=== PATIENT | male | born 1995 | race Caucasian/White ===

== ENCOUNTER 2017-03-22 21:24 | Inpatient (IN) | payer OTHER, MEDICAID ==
[2017-03-22] MEDS ORDERED: LORazepam INJ* 2 MG/ML 1 ML VIAL IV PUSH PRN (21:57)
--- NOTE | 2017-03-22 22:48 | RAD ---
INDICATION: Fever COMPARISON: June 22, 2016 TECHNIQUE: An AP supine portable view obtained at 2230 hours is submitted. FINDINGS: Bones/Soft Tissues: There are no acute bony findings. Cardiomediastinal: The cardiomediastinal silhouette is normal. Lungs: There are no infiltrates. Pleura: There are no pleural effusions. Other: None IMPRESSION: NO ACTIVE DISEASE
--- NOTE | 2017-03-22 23:52 | HP ---
HISTORY AND PHYSICAL: DATE OF ADMISSION: 03/22/17 PRIMARY CARE PROVIDER: Long Jimenez MD NEUROLOGIST: Dr. Urrutia. CHIEF COMPLAINT: Seizures. HISTORY OF PRESENT ILLNESS: Mr. Chaney is a 21-year-old male who has been diagnosed with the seizure disorder within the last one year, who presented to [facility] after having four seizures in the home. The patient was admitted initially to [facility] and sent to [facility], so Neurology could be involved. The patient is currently sedated or postictal and unable to provide any history. The entire history is obtained from history and physical obtained at [facility]. Per the H and P from [place], the patient had been using synthetic marijuana called spike as well as natural marijuana. The patient's father is unaware of if he was taking the synthetic marijuana recently. The patient had a seizure at approximately 3 a.m. and then had three more episodes at home. After each episode, the patient became more and more confused and lethargic. The patient' s father estimated each seizure to last approximately 10 minutes. During the last 2 seizure episodes, he bit his tongue and started bleeding. The patient reportedly did not lose any bowel or bladder control. The patient did not have his Lamictal on the morning of admission to [place] or transfer to [facility] though he did receive a dose at [facility]. While at [place], the patient had another 2 seizures in the emergency room and 2 more seizures on the telemetry floor. Because of this, the patient was transferred to [facility]. PAST MEDICAL HISTORY: Again according to H and P from [place]: 1. Asthma. 2. Anxiety. 3. Depression. 4. PTSD. 5. Seizure disorder. 6. History of cutting. 7. Polysubstance abuse (the patient has past history of abusing morphine, cocaine, and more recently marijuana and synthetic marijuana). PAST SURGICAL HISTORY: Unobtainable. FAMILY HISTORY: Unobtainable from the patient due to him currently being postictal and lethargic. SOCIAL HISTORY: According to H and P from [place] reveals the patient is currently living with his father. He has the reported polysubstance abuse as noted in the past medical history. He reportedly does not drink alcohol and does smoke cigarettes. He does not work and does not drive. REVIEW OF SYSTEMS: Unobtainable from the patient due to him being likely postictal and lethargic. PHYSICAL EXAMINATION GENERAL: The patient is a well-developed, young male, lying on his right side, in no acute distress. VITAL SIGNS: Blood pressure 114/62, pulse 105, respirations 22, temp 101, O2 sat 99% on room air. HEENT: Pupils are equal. They are round. They react to light. The patient does not open his eyelids on his own, but with lifting the eyelids, I am able to perform this exam. He does not appear to look around when I lift his eyelids. Oropharynx is noted to be relatively moist. There is no submandibular , cervical or supraclavicular adenopathy. Thyroid is not enlarged. No thyroid nodules are noted. PULMONARY: The patient does not give a good effort for this exam, but his breath sounds appear to be clear. CARDIAC: Normal S1, S2. Heart rate is slightly tachycardic, but regular. There is no lower extremity edema. ABDOMEN: Bowel sounds are present. Abdomen is soft, nondistended. He does not grimace to palpation of the abdomen. MUSCULOSKELETAL: There is no cyanosis or clubbing of the digits. Passive range of motion is noted to be intact. The patient does not actively move his extremities other than curling up further for sleep. NEUROLOGIC: Unable to be obtained due to the patient being lethargic and postictal. SKIN: Warm and dry. There are no clear rashes. There is evidence of prior cutting on the left upper arm. PSYCH: Unable to be obtained due to the patient being lethargic and postictal. DIAGNOSTIC STUDIES/LAB DATA: Labs from [place], WBC 12.1, hemoglobin 14.5, hematocrit 41.9, platelets 228. Sodium 141, potassium 3.8, chloride 109, CO2 23 , BUN 24, creatinine 1.1, glucose 124, calcium 9.1, albumin 4.7, bilirubin 0.4, AST 22, ALT 32, alk phos 61, CPK 498. [place]peated [place] 0502, Lamictal level is pending. Urinalysis revealed specific gravity of 1.015, positive for urine ketones, negative for nitrites, negative for leukocyte esterase. Urine drug screen is positive for cannabinoids. EKG reveals normal sinus rhythm without any acute ST-T wave abnormalities. ASSESSMENT AND PLAN: Mr. Chaney is a 21-year-old male who was diagnosed with seizure disorder within the last one year, had been on Lamictal 50 mg twice daily, who presented to [place] [facility] after having 4 seizures at home with no clear lucid period between the seizures. 1. Status epilepticus. The patient has had 8 seizures today in less than 24- hour period of time. The patient has not returned to baseline mental status between these seizures. Currently, the patient is likely lethargic related to being postictal as well as receiving 7 to 8 mg of IV Ativan at [facility]. The patient will continue on Keppra 1 g IV q.12 hours for now. Once he is awake and taking an oral medication, his Lamictal dose will be increased to 75 mg twice daily per Dr. Urrutia's recommendations. If the patient has further seizure activity, he would be loaded with fosphenytoin at 20 mg/kg IV. The patient will have Ativan 1 mg IV q.2 hours p.r.n. seizures lasting greater than 3 minutes. He will be monitored very closely in the intensive care unit and Neurology consultation will be requested for tomorrow morning. The patient is currently febrile. It is unclear if this preceded the seizure activity or subsequent to the seizure activity. Urinalysis at [place] was not concerning for infection. I will, however, go ahead and get the chest x-ray to rule out pneumonia. I will not start antibiotics at this time as there is no clear source of infection. 2. Mildly elevated CPK. The patient likely has very mild rhabdomyolysis related to seizure activity. The patient's seizures are tonic-clonic in nature. We will get a followup CPK level tomorrow morning. 3. Polysubstance abuse. The patient reportedly has been using both synthetic and natural marijuana recently. Perhaps this has contributed to the onset of his seizure activity today. Once awake and oriented, counseling will need to be provided to the patient. He would likely benefit from a social work consult. 4. DVT prophylaxis. According to the Adult Thrombosis Prophylaxis Risk Factor Assessment Guide, the patient has a total risk factor score of 0 making him low risk; however, as he is not up and ambulating at this time, he will be started on heparin 5000 units subcutaneous q.12 hours. 5. Code status is full. TIME SPENT: 65 minutes were spent admitting this patient of which greater than half was spent reviewing the records from [facility] and performing the physical exam. CC: Dr. Long Jimenez; Dr. Urrutia * [id number]/[facility] #: [id number] [facility]
[2017-03-23] MEDS: NS 0.9% 1000 ML* 1,000 ML IV SCH ×3 (04:28→17:47)
[2017-03-23 05:19] LABS: Hematocrit 37 % (42-52); Hemoglobin 12.4 g/dl (14.0-18.0); Mean Corpuscular HGB Conc 34 g/dl (31-36); Mean Corpuscular Hemoglobin 29 pg (27-31); Mean Corpuscular Volume 85 fL (80-94); Mean Platelet Volume 8 um3 (7.4-10.4); Red Blood Count 4.34 10^6/ul (4.0-5.4); Red Cell Distribution Width 14 % (10.5-15); White Blood Count 10.9 10^3/ul (3.5-10.8)
[2017-03-23 05:33] LABS: BUN/Creatinine Ratio 15.1 (8-20); Calcium 8.6 mg/dL (8.6-10.3); EGFR African American 131.9 (>60); EGFR Non-African American 102.6 (>60); Potassium 3.5 mmol/L (3.5-5.0)
[2017-03-23 08:21] LABS: Albumin 3.9 g/dL (3.2-5.2); Globulin 2.3 g/dL (2-4); Total Bilirubin 0.7 mg/dL (0.2-1.0); Total Protein 6.2 g/dL (6.4-8.9)
--- NOTE | 2017-03-23 09:44 | PN ---
Subjective Date of Service: 03/23/17 Interval History: This is a 21 yo male with known seizure disorder, followed by Dr Urrutia, and substance abuse disorder who was transferred from [facility] overnight with status epilepticus. Patient has been using marajuana as well as synthetic marajuana (Spice) and denies an association with substance use and seizure activity. He remembers little about yesterday but states that prior he was feeling well. He reports medication non-compliance, stating he frequently misses doses and he forgets to take it. Denies any additional complaints this am. Objective Active Medications: Heparin Sodium (Porcine) (Heparin Vial(*)) 5,000 units SUBCUT Q12HR KENDALL Levetiracetam 1,000 mg/ Sodium (Chloride) 110 mls @ 440 mls/hr IVPB Q12H [facility] Last Admin: 03/23/17 05:31 Dose: 440 mls/hr Sodium Chloride (Ns 0.9% 1000 Ml*) 1,000 mls @ 150 mls/hr IV PER RATE [facility] Last Admin: 03/23/17 04:28 Dose: 150 mls/hr Lamotrigine (Lamictal Tab(*)) 75 mg PO BID KENDALL Lorazepam (Ativan Inj*) 1 mg IV PUSH Q2H PRN PRN Reason: seizure >3 minutes Vital Signs: Temp Pulse Resp BP Pulse Ox 98.8 F 84 24 97/46 97 03/23/17 07:41 03/23/17 09:00 03/23/17 09:00 03/23/17 09:00 03/23/17 09:00 Appearance: Somewhat fatigued appearing and slow to answer questions, but alert Respiratory: Symmetrical Chest Expansion and Respiratory Effort, Clear to Auscultation Cardiovascular: NL Sounds; No Murmurs; No JVD, RRR Abdominal: NL Sounds; No Tenderness; No Distention Extremities: No Edema Skin: No Rash or Ulcers Neurological: Alert and Oriented x 3 Result Diagrams: 03/23/17 05:00 03/23/17 05:00 Microbiology and Other Data: Microbiology 03/23/17 03:00 Nasal Screen MRSA (PCR)(ALICE) - Final Nasal Mrsa Negative Assess/Plan/Problems-Billing Assessment: This is a 21 yo male with seizure d/o, polysubstance abuse, asthma, anxiety, depression, PTSD who was transferred overnight from [facility] with status epilepticus. - Patient Problems (1) Status epilepticus Comment: Resolved No further seizure activity since arrival Followed by Dr Urrutia for known sz d/o who is also consulting Lamictal dose increased to 75 mg bid per her recommendation Will stop IV Keppra at this time EEG pending Cont to monitor in ICU setting (2) Polysubstance abuse Comment: Utox pending Patient admits to recent marajuana and synthetic marajuana (Spice) use Limited insight as to how his substance abuse is playing a role in his seizure control (3) Asthma Comment: No associated exacerbation (4) Anxiety and depression Comment: Stable Working to confirm home medications (5) PTSD (post-traumatic stress disorder) (6) Full code status (7) DVT prophylaxis Comment: SQ heparin Status and Disposition: Inpatient. Pending EEG and neurology consult. Possible dc later today or tomorrow
[2017-03-23] MEDS: Heparin VIAL(*) 5000 UNITS/ML VIAL (FIVE THOUSAND) SUBCUT SCH ×2 (09:59→20:53)
[2017-03-23] MEDS: lamoTRIgine TAB(*) 25 MG PO SCH ×2 (10:00→20:54)
[2017-03-23 11:39] LABS: Urine Bilirubin Negative (Negative); Urine Glucose Negative (Negative); Urine Nitrite Negative (Negative)
[2017-03-23] MEDS: levETIRAcetam TAB* 500 MG PO SCH (20:54)
--- NOTE | 2017-03-23 20:55 | CONS ---
NEUROLOGY CONSULTATION: DATE OF CONSULT: 03/23/17 LOCATION: The patient is an inpatient in the ICU. REQUESTING PHYSICIAN: Dr. Fabienne Phillips. REASON FOR CONSULT: Breakthrough seizures. HISTORY OF PRESENT ILLNESS: Jer Chaney is a 21-year-old man with a history of mood disorder, as well as epilepsy of unknown localization and etiology, who presented to the emergency department at [facility] yesterday after experiencing several seizures at home. According to the H and P which accompanies him, his father reported to the hospitalist there that he had at least three seizures at home starting at approximately 3 a.m. on March 22 and with each seizure afterward, he became progressively more lethargic and confused which prompted his father to bring him to the emergency department. He experienced two more seizures in the emergency department, at which point I was contacted by the ED physician to discuss his case. At that point, the history I gotten from the emergency department physician was that he had experienced a single seizure at home and two in the emergency room and had received Ativan. In addition, it seems that the seizure occurred in the context of him missing the prior evening dose of lamotrigine. He was to be admitted for observation at [facility], but then experienced two more seizures on the floor and was transferred here for further evaluation and care. I last saw Jer as an outpatient in December and he was being treated with Depakote at that time. He was having worsening tremor and possibly mood side effects as well and so the decision was made to transition him to lamotrigine. He is now on 50 mg twice daily of lamotrigine and is no longer on Depakote, which I believe is for approximately the past few weeks to a month; however, the exact timing is unclear at this time because of the patient's mental status. Today, he denies missing any medications but again this was noted in the H and P from [place]. He admits to marijuana use but denies use of Spice or other synthetic marijuana, though again this is contradicted in the H and P from [place] which indicates that he has been using Spice recently. I also noticed some scars/cutting [place] on his upper left arm and enquired about those and he tells me that a few weeks ago, he tried to kill himself by overdosing on Ativan. He indicates that he took 53 Ativan and stumbled to his counselor where they noticed something was wrong and he was brought to the ER at [facility]. He does not believe that he was admitted and indicates that he is surprised they did not "pump my stomach." I reviewed his I-STOP and he received 60 tablets of lorazepam 1 mg on February 06 from another provider. Today, Jer does not complain of any pain. He indicates that he is now living with his dad and stepmother which is new over the past couple of weeks and he says this is better situation for him than the subsidized housing that he was living in before. He has not experienced any more seizures since he was transferred to [facility]. PAST MEDICAL HISTORY: 1. Asthma. 2. Anxiety. 3. Depression. 4. PTSD. 5. Epilepsy. 6. History of polysubstance abuse, and in the past, he has had seizures related to cocaine use but has been clean from that for quite some time. FAMILY HISTORY: Notable for strong family history of seizures on his mother's side. Mom reports a history of seizures and maternal uncle and cousin also have seizure disorder. Furthermore, his maternal grandfather had seizures. SOCIAL HISTORY: The patient is currently living with his father and stepmother as noted. He admits to using marijuana and there are conflicting reports as to whether he is using synthetic marijuana as well. REVIEW OF SYSTEMS: As per the HPI, otherwise negative. PHYSICAL EXAM: Vital Signs: Temperature 97.9, blood pressure 126/85, heart rate 100, and oxygen saturation is 100% on room air. His T-max was 101 at 2200. On general examination, he is asleep but easily awakened to voice. His heart is tachycardic, but otherwise no obvious murmurs. Lungs are clear. He is fully oriented. His speech is fluent without dysarthria or aphasia. Pupils are equal, round, and reactive from 5 to 3 mm bilaterally. His versions are full. There is end-gaze nystagmus bilaterally. Tadeo are full to confrontation. His face is symmetric and full strength. Tongue protrudes in the midline and there is healing laceration on the right side. On motor examination, there is no pronator drift. He has got full strength in the upper and lower extremities. Sensation is intact to light touch. There is no ataxia on [id number] testing. LABORATORY DATA: Notable for a white count of 10.9, hematocrit of 37. Chemistry panel notable for slightly low CO2 of 19 and elevated anion gap of 12. His CK is 795, protein of 6.2. Urine notable for 2+ ketones. His urine toxicology from [place] is notable for cannabinoids and otherwise negative. IMPRESSION: Jer Chaney is a 21-year-old male with a history of epilepsy, as well as substance abuse, who presents from [place] with acute repetitive seizures in the setting of a probable subtherapeutic lamotrigine level. I believe he was taking 50 mg twice daily as an outpatient and this was increased to 75 mg twice daily at this point. He is no longer on Depakote and so lamotrigine can be increased by 25 mg per week and I would target a dose of at least 150 mg twice daily. For the time being, I will put him back on levetiracetam, which he has been on in the past but which caused him some irritability. However, temporarily as a bridge to therapeutic lamotrigine level , I will have him on 1000 mg twice daily. Lamotrigine level is pending at this time. When his father arrives as well, I will clarify his drug use and ensure that he is aware that synthetic cannabinoids can provoke seizures. I also discourage the use of marijuana in my patients as well. I will also clarify this history that Jer gives of a suicide attempt recently with lorazepam. If this is indeed the case, then he should not receive this for treatment of his anxiety and will need to be hooked in with psychiatrist if he does not have one for proper treatment of his anxiety. He has had an EEG as well and formal report is pending but there were no obvious epileptiform discharges on that recording. [id number]/[facility] #: [id number] [facility]
[2017-03-24] MEDS: NS 0.9% 1000 ML* 1,000 ML IV SCH (00:21)
[2017-03-24] MEDS ORDERED: traZODone TAB* 50 MG TAB PO ONE (00:52)
[2017-03-24] MEDS: levETIRAcetam TAB* 500 MG PO SCH (08:00)
[2017-03-24] MEDS: lamoTRIgine TAB(*) 25 MG PO SCH (08:00)
[2017-03-24] MEDS: Heparin VIAL(*) 5000 UNITS/ML VIAL (FIVE THOUSAND) SUBCUT SCH (08:01)
[2017-03-24 08:07] VITALS: BP 145/73
--- NOTE | 2017-03-24 13:04 | EEG ---
CC: Barb Urrutia MD. ELECTROENCEPHALOGRAPHY: DATE OF STUDY: 03/23/17 LOCATION: The patient is an inpatient. ORDERING PROVIDER: LEILA Cedeno. CLINICAL PROBLEM: This is a 21-year-old man who has been diagnosed with epilepsy since june, which is of unclear localization and etiology. He was transferred [place] [facility] after he has experienced acute repetitive seizures. The last seizu re occurred last evening. He received a gram of Keppra as well as multiple doses of Ativan at [facility] and. EEG is requested to evaluate for epileptiform abnormalities. MEDICATIONS: 1. Ativan p.r.n. 2. Lamotrigine 75 mg daily. 3. Keppra 1000 mg twice daily. REPORT: Waking background demonstrated excess beta activity, which was present predominantly in the frontocentral regions, but also noted diffusely throughout the EEG. There was some preservation of the anterior to posterior voltage and frequency gradients, but the posterior dominant rhythm was no t readily discernible due to the excess beta activity. In addition, there were brief periods lastin g 3 seconds per epoch of sharply contoured theta activity, which was frontocentrally predominant wit h some intermixed sharp features. Photic stimulation and hyperventilation were not performed. The patient became drowsy as evidenced by reduced muscle artifact and roving eye movements, but ther e were no well developed sleep spindles or vertex waves to indicate transition to stage 2 sleep. Throughout the recording, there were no definitive epileptiform discharges. IMPRESSION: This is an abnormal waking and drowsy EEG due to the presence of occasional sharply con toured theta activity in the frontocentral regions, which is accompanied by sharp features. These s harp features are not definitively epileptiform in nature. These findings may suggest a mild, nonsp ecific, diffuse encephalopathy. There is excess theta activity consistent with recent benzodiazepin e administration. There are no definitive epileptiform abnormalities. [id number]/[facility] #: [id number]
--- NOTE | 2017-03-25 00:43 | DS ---
DISCHARGE SUMMARY: DATE OF ADMISSION: 03/22/17 DATE OF DISCHARGE: 03/24/17 PRIMARY CARE PROVIDER: Dr. Idalia Jimenez. NEUROLOGIST: Dr. Barb Urrutia. DISCHARGING PROVIDER: LEILA Mera SUPERVISING PHYSICIAN: Dr. Aziza Gregory* (dictated by LEILA Mera). PRIMARY DISCHARGE DIAGNOSIS: Status epilepticus. SECONDARY DISCHARGE DIAGNOSES: 1. Polysubstance abuse - toxicology screen still pending at the time of discharge but the patient admits to marijuana use and denies all other illicit substances. 2. Asthma without acute exacerbation. 3. Anxiety and depression with recent suicide attempt, treated at [facility]. 4. Post-traumatic stress disorder. DISCHARGE MEDICATIONS: 1. Baclofen 5 mg p.o. t.i.d. 2. Lorazepam 1 mg p.o. b.i.d. as needed. 3. Lamictal 75 mg p.o. twice daily. 4. Keppra 1000 mg p.o. twice daily. MEDICATION CHANGES: 1. Start Keppra. 2. Increase Lamictal with dose instructions to increase by 25 mg weekly with a target dose of 150 mg twice daily. HOSPITAL IMAGIN. Chest x-ray is within normal limits. 2. EEG - final read is pending, but has been reviewed by Neurology. HOSPITAL COURSE: This is a 21-year-old gentleman with a known seizure disorder , who was transferred to our facility from [facility] with status epilepticus. The patient had sustained approximately 4 seizures at home prior to being transported to [facility] and sustained another 2 on their emergency department and additional 2 while on their medical floor. The patient is followed by Dr. Urrutia and was subsequently transferred to our facility for further monitoring and Neurology input. The patient did not sustain any additional seizures since arriving at our facility. He was started on IV Keppra and his dose of Lamictal was increased to 75 mg twice daily [address] Dr. Urrutia's recommendations. He underwent EEG the day prior to discharge. Final read is pending, but this was reviewed by Neurology. There was a mention that the patient had been using synthetic marijuana prior to admission but the patient adamantly denies this on multiple occasions. He does admit to occasional marijuana use, but denies any other illicit substances. A substance abuse screen was completed during his hospitalization, but results are still pending at the time of discharge. The patient also notes that he had suicide attempt approximately 2 to 3 weeks ago where he had taken multiple lorazepam and also cut his left upper arm. He states that he was treated at [facility], these records are not available for review during this hospitalization. Would highly recommend that the patient do not receive any additional lorazepam due to the history. He does deny any suicidal ideations at this time and feels that his support system has improved since moving in with his father and stepmother. DISPOSITION AND FOLLOWUP PLAN: The patient is being discharged to home where he lives with his father and stepmother. Medication changes have been made as outlined above. Again, Keppra is a new antiepileptic and dose of Lamictal has been increased to 75 mg twice daily with instructions to increase by 25 mg weekly with a target dose of 150 mg twice daily. The patient requires close followup with his neurologist, Dr. Urrutia, and his primary care provider regarding this hospital admission. Again, would not recommend continuing use of Ativan for treatment of anxiety for this individual. LEILA MERA CC: Dr. Idalia Jimenez; Dr. Barb Urrutia* [id number]/[facility] #: [id number] [facility]
== END 2017-03-24 15:45 | disposition home or self-care (01) | DRG 101 ==
LOC: ICU 21:24 → MEDTELE 03-23 15:18
PROVIDERS: ADMIT Hospitalist; ATTEND Internal Medicine
DX: G40.901 Epilepsy, unspecified, not intractable, with status epilepticus (principal); M62.82 Rhabdomyolysis; F12.10 Cannabis abuse, uncomplicated; J45.909 Unspecified asthma, uncomplicated; F41.8 Other specified anxiety disorders; F43.10 Post-traumatic stress disorder, unspecified; Z82.0 Family history of epilepsy and other diseases of the nervous system
CPT/HCPCS: 36415; 71010; 80053; 80175; 80307; 80364; 81003; 82550; 85025; 87641; 95816; A9270-GY; G0480; J1644; J2060

== ENCOUNTER 2021-03-01 23:59 | Observation (INO) ==
[2021-03-02] MEDS ORDERED: Phenytoin IV 1,000 MG in NS 0.9% 250 ml 180 ML IV ONE (00:15)
[2021-03-02] MEDS ORDERED: Lorazepam PYXIS KEY PRN (00:40)
[2021-03-02] MEDS ORDERED: LORazepam 2 mg VIAL 1 ml IV PUSH PRN ×2 (00:40→00:51)
[2021-03-02] MEDS ORDERED: NS 0.9% 1000 ml BAG 1,000 ML IV SCH (00:45)
[2021-03-02] MEDS ORDERED: Fosphenytoin 1000 MG PE in 50 ml NS IVPB ONE (01:00)
[2021-03-02 09:04] LABS: ABS Basophils 0.1 10^3/ul (0-0.2); ABS Monocytes 0.9 10^3/ul (0-0.8); ABS Neutrophils 9.2 10^3/ul (1.5-7.7); Eosinophil % 0.1 %; Hematocrit 43 % (42-52); Hemoglobin 14.3 g/dL (14.0-18.0); Lymphocyte % 22.8 %; Mean Corpuscular HGB Conc 33 g/dL (31-36); Mean Corpuscular Hemoglobin 29 pg (27-31); Mean Corpuscular Volume 85 fL (80-94); Platelet Count 218 10^3/uL (150-450); Red Blood Count 5.01 10^6 /uL (4.18-5.48); Red Cell Distribution Width 15 % (10-15); White Blood Count 13.2 10^3/uL (3.5-10.8)
[2021-03-02 09:22] LABS: Albumin 4.5 g/dL (3.2-5.2); Albumin/Globulin Ratio 1.9 (1-3); Calcium 9.1 mg/dL (8.6-10.3); EGFR African American 107.7 (>60); Globulin 2.4 g/dL (2-4); Potassium 3.9 mmol/L (3.5-5.0); Total Bilirubin 0.7 mg/dL (0.2-1.0); Total Protein 6.9 g/dL (6.4-8.9)
[2021-03-02 15:42] VITALS: BP 125/79
[2021-03-02 18:55] LABS: Phosphorus 2.5 mg/dL (2.5-5.0)
== END 2021-03-02 17:00 | disposition home or self-care (01) ==
LOC: ED 23:59 → MED 23:59
PROVIDERS: ADMIT Internal Medicine; ATTEND Hospitalist